=== PATIENT | male | born 1965 | race Caucasian/White ===

== ENCOUNTER 2016-09-30 13:14 | Emergency (ER) | payer SELFPAY ==
[2016-09-30] MEDS ORDERED: DOXYcycline CAP(*) 100 MG PO ONE (16:04)
--- NOTE | 2016-09-30 16:06 | ED ---
Skin Complaint - HPI Summary HPI Summary: 51 male presents with complaints of being bite by a tick on 09/27/16 and concerned for lyme disease. Patient has been doing a lot of research and states he would like the prophylactic dose of antibiotic to prevent lyme. States the tick was attached for less than 48 hours and he removed it himself from the right lower extremity without complication. Denies rash and joint aches. No bullseye rash. Bite healed nicely. No other bites. Patient states he doesn't believe he has lyme but he would like the one time dose of antibiotic to make himself feel better. No PMHX. No medications and no other complaints at this time. - History of Current Complaint Chief Complaint: EDGeneral Time Seen by Provider: 09/30/16 13:30 Stated Complaint: TICK Hx Obtained From: Patient Onset/Duration: Started Days Ago Skin Exposure Onset/Duration: Days Ago Timing: Lasting Days - 2 Onset Severity: Mild Current Severity: None Pain Intensity: 0 Pain Scale Used: 0-10 Numeric Skin Location: Leg - lower right posterior Character: Redness Aggravating Symptom(s): Nothing Alleviating Symptom(s): Nothing Associated Signs & Symptoms: Negative Related History: Insect Bite/Sting - tick - Allergy/Home Medications Allergies/Adverse Reactions: Allergies Allergy/AdvReac Type Severity Reaction Status Date / Time No Known Allergies Allergy Verified 09/03/15 22:53 PMH/Surg Hx/FS Hx/Imm Hx Endocrine/Hematology History: Denies: Hx Diabetes Cardiovascular History: Denies: Hx Hypertension Respiratory History: Denies: Hx Asthma - Surgical History Surgery Procedure, Year, and Place: none - Immunization History Immunizations Up to Date: Yes Infectious Disease History: No Infectious Disease History: Denies: Traveled Outside the [place] in Last 30 Days - Family History Known Family History: Positive: Unknown - Social History Alcohol Use: None Substance Use Type: Reports: None Hx Tobacco Use: No Smoking Status (MU): Never Smoked Tobacco Review of Systems Constitutional: Negative Cardiovascular: Negative Respiratory: Negative Musculoskeletal: Negative Positive: Other - tick bite Neurological: Negative All Other Systems Reviewed And Are Negative: Yes Physical Exam Triage Information Reviewed: Yes Vital Signs On Initial Exam: Initial Vitals Temp Pulse Resp BP Pulse Ox 98.7 F 62 18 133/66 97 09/30/16 13:15 09/30/16 13:15 09/30/16 13:15 09/30/16 13:15 09/30/16 13:15 Completion Of Physical Exam Limited Due To: Dementia Appearance: Positive: Well-Appearing, No Pain Distress, Well-Nourished Skin: Positive: Warm, Skin Color Reflects Adequate Perfusion, Dry, Erythema @ - very minimal to none at area of tick bite, posterior right lower extremity. not raised, no drainage, no erythema migrans or any rash noted. small ecchymosis pea sized around bite, healing. no FB or tick parts noted. rest of skin exam normal.. Negative: Cyanosis @ Eyes: Positive: Conjunctiva Clear ENT: Positive: Hearing grossly normal Neck: Positive: Supple, Nontender, No Lymphadenopathy Respiratory/Lung Sounds: Positive: Clear to Auscultation, Breath Sounds Present. Negative: Rales, Rhonchi, Wheezes Cardiovascular: Positive: Normal, RRR, Pulses are Symmetrical in both Upper and Lower Extremities. Negative: Murmur, Rub Abdomen Description: Positive: Nontender, Soft Bowel Sounds: Positive: Present Musculoskeletal: Positive: Normal, Strength/ROM Intact. Negative: Limited @, Pain @ Neurological: Positive: Normal, Sensory/Motor Intact, Alert, Oriented to Person Place, Time Psychiatric: Positive: Affect/Mood Appropriate, Anxious Diagnostics - Vital Signs Vital Signs Temp Pulse Resp BP Pulse Ox 09/30/16 13:26 98.7 F 62 18 133/66 97 09/30/16 13:15 98.7 F 62 18 133/66 97 - Laboratory Lab Statement: Any lab studies that have been ordered have been reviewed, and results considered in the medical decision making process. Course/Dx - Course Course Of Treatment: patient was educated on lyme disease and transmission, as well as tick bites. although patient was aware of proper use of prophylactic antibiotic for lyme he insisted on treatment. patient was given doxycycline. aware of worsening signs and symptoms of lyme disease and told to have his blood checked after 3 weeks. follow up with PCP. - Differential Diagnoses - Skin Complaint Differential Diagnoses: Contact Dermatitis, Local Allergic Reaction, MRSA, Tick Born Illness, Tinea - Diagnoses Provider Diagnoses: Tick bite of calf Discharge - Discharge Plan Condition: Stable Disposition: HOME Patient Education Materials: Lyme Disease (ED), Tick Bite (ED) Referrals: No Primary Care Phys,[facility]OPCP [Primary Care Provider] - [facility] [Outside] Additional Instructions: If you would like to be tested for lyme disease please wait 3 weeks. Watch for bullseye rash, is these appear please seek medical attention immediately.
[2016-09-30 16:19] VITALS: BP 113/63
== END 2016-09-30 16:18 | disposition home or self-care (01) ==
LOC: ED 13:14
DX: S80.861A Insect bite (nonvenomous), right lower leg, initial encounter (principal); W57.XXXA Bitten or stung by nonvenomous insect and other nonvenomous arthropods, initial encounter; Y93.89 Activity, other specified; Y92.89 Other specified places as the place of occurrence of the external cause
CPT/HCPCS: 99282; A9270-GY